=== PATIENT | female | born 1985 | race Caucasian/White ===

== ENCOUNTER 2021-12-14 05:32 | Inpatient (IN) | payer BC ==
[2021-12-14] MEDS ORDERED: METHYLERGONOVINE 0.2 MG/ML 1 ML AMP IM PRN (05:53)
[2021-12-14] MEDS ORDERED: CARBOPROST TROMETHAMINE 250 MCG/ML 1 ML AMP IM PRN (05:53)
[2021-12-14] MEDS ORDERED: OXYTOCIN 30 UNITS/500 ML NS 30 UNIT in SALINE 1 500ML.BAG IV SCH ×2 (05:53→15:09)
[2021-12-14] MEDS ORDERED: LIDOCAINE 0.5% (PF) 5 MG/ML (50 ML SDV) SQ PRN (05:53)
[2021-12-14] MEDS ORDERED: OXYTOCIN 10 UNIT/ML 1 ML VIAL IM PRN (05:53)
[2021-12-14] MEDS ORDERED: TERBUTALINE 1 MG/ML VIAL SQ PRN (05:53)
--- NOTE | 2021-12-14 06:16 | P.HPOB ---
History of Present Illness H&P Date: 12/14/21 Chief Complaint: Requested induction of labor This patient is a pleasant 36-year-old 6 para 3 female estimated date of confinement 12/17/2021 station age 39-4/7 weeks who presents to labor and delivery for requested induction of labor. Patient's care is such that she transferred care to ct at 31 weeks because her physicians delivering hospital was closed. care has been uncomplicated. She did have a previous with her second however has had a successful and requests again this . Patient is advanced for maternal age however has declined genetic testing. She has been followed with growth ultrasounds and nonstress testing. Review of Systems Genitourinary: Reports Menstruation: Reports amenorrhea Past Medical History Past Medical History: No Reported History Additional Past Medical History / Comment(s): Patient had a term vaginal delivery followed by a for oligohydramnios and nonreassuring monitoring, followed by successful . Patient also had an ectopic . Past Surgical History: Appendectomy Additional Past Surgical History / Comment(s): Dilation and curettage Past Psychological History: No Psychological Hx Reported Smoking Status: Never smoker Past Alcohol Use History: None Reported Past Drug Use History: None Reported Medications and Allergies Home Medications Medication Instructions Recorded Confirmed Type Pnv No.95/Ferrous Fum/Folic AC 1 tab PO DAILY 12/14/21 12/14/21 History [ Multivitamin Tablet] Allergies Allergy/AdvReac Type Severity Reaction Status Date / Time No Known Allergies Allergy Verified 12/14/21 05:52 Exam Intake and Output 12/13/21 12/13/21 12/14/21 14:59 22:59 06:59 Other: Weight 67.132 kg - OBG Physical Exam Abdomen: bowel sounds normal, no diffuse tenderness, no bruit present, no guarding noted, no hepatomegaly, no splenomegaly, no mass Vulva: both: normal Vagina: normal moisture, no discharge Cervix: no lesion (Cervix is 2-3 thick and -2 station), no discharge Uterus: normal size (Fundal height 38 cm) Results blood work shows she is O positive, rubella immune, RPR nonreactive, hepatitis B negative, HIV is nonreactive, growth ultrasound at 35 weeks was normal at 5 lbs. 12 oz. Assessment and Plan Assessment: This is a pleasant 36-year-old 7 para 3 female estimated gestational age 39-4/7 weeks who presents to labor and delivery for requested induction of labor. Patient's had a previous section with previous successful and is requesting repeat . Plan is Pitocin induction of labor per protocol. And anticipate vaginal delivery after section. Patient and I have discussed the risks and benefits of . (1) 39 weeks gestation of Current Visit: Yes Status: Acute Code(s): Z3A.39 - 39 WEEKS GESTATION OF SNOMED Code(s): 19445904 (2) Previous delivery affecting Current Visit: Yes Status: Acute Code(s): O34.219 - MATERNAL CARE FOR UNSP TYPE SCAR FROM PREVIOUS DEL SNOMED Code(s): 107114834 (3) Elderly multigravida Current Visit: Yes Status: Acute Code(s): O09.529 - SUPERVISION OF ELDERLY MULTIGRAVIDA, UNSPECIFIED TRIMESTER SNOMED Code(s): 563157113 (4) Elective induction of labor planned Current Visit: Yes Status: Acute Code(s): MIW6756 - SNOMED Code(s): 591323338
[2021-12-14] MEDS: LACTATED RINGERS 1,000 ML IV SCH ×3 (06:51→13:12)
[2021-12-14 07:08] LABS: Basophils % (A) 0 %; Eosinophils # (A) 0.1 k/uL (0-0.7); Eosinophils % (A) 1 %; HCT 37.3 % (34.0-46.0); HGB 11.7 gm/dL (11.4-16.0); Lymphocytes # (A) 1.3 k/uL (1.0-4.8); Lymphocytes % (A) 20 %; MCH 27.7 pg (25.0-35.0); MCHC 31.3 g/dL (31.0-37.0); MCV 88.6 fL (80.0-100.0); Mean Platelet Volume 8.4; Monocytes # (A) 0.5 k/uL (0-1.0); Monocytes % (A) 7 %; Neutrophils # (A) 4.3 k/uL (1.3-7.7); Neutrophils % (A) 68 %; Platelet Count 181 k/uL (150-450); RBC 4.21 m/uL (3.80-5.40); RDW 14.7 % (11.5-15.5); WBC 6.3 k/uL (3.8-10.6)
[2021-12-14] MEDS ORDERED: fentaNYL (PF) 50 MCG/ML 5 ML AMP ONE (11:48)
[2021-12-14] MEDS ORDERED: SODIUM CHLORIDE 0.9% 100 ML BAG ONE (11:48)
[2021-12-14] MEDS ORDERED: ROPIVACAINE 5MG/ML 20ML VIAL ONE (11:48)
[2021-12-14] MEDS ORDERED: ACETAMINOPHEN TAB 325 MG TAB PO PRN (15:09)
[2021-12-14] MEDS ORDERED: LANOLIN CREAM 5 GM TUBE TOPICAL PRN (15:09)
[2021-12-14] MEDS ORDERED: HYDROCORTISONE 2.5% RECTAL CREAM 30 GM TUBE RECTAL PRN (15:09)
[2021-12-14] MEDS ORDERED: diphenhydrAMINE 25 MG CAP PO PRN (15:09)
[2021-12-14] MEDS ORDERED: ZOLPIDEM 5 MG TAB PO PRN (15:09)
[2021-12-14] MEDS ORDERED: SIMETHICONE 80 MG CHEWABLE PO PRN (15:09)
[2021-12-14] MEDS ORDERED: diphenhydrAMINE 50 MG/ML 1 ML VIAL IVP PRN (15:09)
[2021-12-14] MEDS ORDERED: bisacodyL 10 MG SUPP RECTAL PRN (15:09)
[2021-12-14] MEDS ORDERED: BENZOCAINE/MENTHOL SPRAY 1 GM/SPRAY AEROSOL TOPICAL PRN (15:09)
[2021-12-14] MEDS: SENNOSIDES-DOCUSATE SODIUM 1 EACH TAB PO SCH ×2 (15:50→22:29)
--- NOTE | 2021-12-14 17:37 | P.PROBDLV ---
Vaginal Delivery Note - . Vaginal Delivery Note: Normal vaginal delivery () of viable male infant Apgars 9 and 9 delivery time is 1500 hrs. Please see dictated H&P for intimate details of this patient's admission. Brief summary this is a pleasant 36-year-old 6 para 3 female estimated gestational age 39-4/7 weeks who is admitted to labor and delivery for requested induction of labor. On admission patient is 3 cm dilated has artificial rupture membranes for clear fluid. Labor is induced with Pitocin per protocol. Patient's labor progresses and she does get an epidural for pain control. Patient therefore after quickly progresses to complete pushes the head to the perineum. Posterior perineum is supported we have controlled delivery of the 's head over the intact perineum. Infant's head is straight occiput anterior presentation. Mouth and nares are bulb suctioned. There is a nuchal cord and also a hand presenting posteriorly but with gentle downward traction we have delivery of the anterior shoulder and posterior shoulder and rest this infant's body. This is a vigorous viable male Apgars are 9 and 9 delivery time is 1500 hrs. After delivery of the infant the umbilical cord is allowed to quit pulsing is then doubly clamped and cut. The placenta is then spontaneously delivered intact. is laid on the mother's abdomen. Inspection of the perineum shows a superficial laceration which is reapproximated in [id number] 3-0 suture. Excellent reapproximation is noted. Cord blood was obtained. All counts are correct 3. There are no complications. and mother are stable delivery room.
[2021-12-15] MEDS: IBUPROFEN 600 MG TAB PO PRN ×3 (00:04→15:46)
--- NOTE | 2021-12-15 06:20 | P.PNOBGVD ---
Subjective - Subjective Patient reports: Reports appetite normal, Reports voiding normally, Reports pain well controlled, Reports ambulating normally : doing well Objective - Latest Vital Signs Latest vital signs: Vital Signs Temp Pulse Resp BP Pulse Ox 12/15/21 04:00 98.7 F 130 H 50 H 12/15/21 00:00 97.7 F 90 16 105/72 12/14/21 20:00 97.6 F 82 16 109/59 12/14/21 17:15 97.7 F 107 H 18 113/56 97 12/14/21 16:45 98.5 F 77 18 115/61 12/14/21 16:15 97.9 F 93 18 117/74 12/14/21 16:00 83 114/64 12/14/21 15:45 98.5 F 75 18 114/57 12/14/21 15:30 97.9 F 96 18 119/66 12/14/21 15:15 98.7 F 90 18 129/68 Intake and Output 12/14/21 12/14/21 12/15/21 14:59 22:59 06:59 Intake Total 178.400 Balance 178.400 Intake: Intake, IV Titration 178.400 Amount Oxytocin 30 Units/500 ml 178.400 Ns 30 unit In Saline 1 500ml.bag @ Per Protocol IV .Q0M [facility] Rx#:[id number] Other: # Voids 2 - Exam Lungs: bilateral: normal Chest: Normal S1, Normal S2 Extremities: Present: normal Abdomen: Present: normal appearance, soft Uterus: Present: normal, firm Assessment and Plan Assessment: day #1. Patient is resting without complaints and wishes to go home. Vital signs are stable she's afebrile. Uterus is firm nontender she is having normal lochia. My impression this is a normal course. Plan is to continue routine care discharge home later today. (1) 39 weeks gestation of Current Visit: Yes Status: Acute Code(s): Z3A.39 - 39 WEEKS GESTATION OF SNOMED Code(s): 51945282 (2) Previous delivery affecting Current Visit: Yes Status: Acute Code(s): O34.219 - MATERNAL CARE FOR UNSP TYPE SCAR FROM PREVIOUS DEL SNOMED Code(s): 363554983 (3) Elderly multigravida Current Visit: Yes Status: Acute Code(s): O09.529 - SUPERVISION OF ELDERLY MULTIGRAVIDA, UNSPECIFIED TRIMESTER SNOMED Code(s): 260964868 (4) Elective induction of labor planned Current Visit: Yes Status: Acute Code(s): HOU9352 - SNOMED Code(s): 213579778
[2021-12-15 06:24] LABS: Basophils % (A) 0 %; Eosinophils # (A) 0.1 k/uL (0-0.7); Eosinophils % (A) 2 %; HCT 33.4 % (34.0-46.0); HGB 10.6 gm/dL (11.4-16.0); Lymphocytes # (A) 1.8 k/uL (1.0-4.8); Lymphocytes % (A) 20 %; MCH 28.1 pg (25.0-35.0); MCHC 31.7 g/dL (31.0-37.0); MCV 88.7 fL (80.0-100.0); Mean Platelet Volume 8.3; Monocytes # (A) 0.7 k/uL (0-1.0); Monocytes % (A) 8 %; Neutrophils % (A) 68 %; Platelet Count 166 k/uL (150-450); RBC 3.76 m/uL (3.80-5.40); RDW 14.7 % (11.5-15.5); WBC 8.8 k/uL (3.8-10.6)
--- NOTE | 2021-12-15 06:29 | P.DS ---
Providers Date of admission: 12/14/21 05:32 Expected date of discharge: 12/15/21 Attending physician: Juan Choudhury Primary care physician: Stated None - Discharge Diagnosis(es) (1) 39 weeks gestation of Current Visit: Yes Status: Acute (2) Previous delivery affecting Current Visit: Yes Status: Acute (3) Elderly multigravida Current Visit: Yes Status: Acute (4) Elective induction of labor planned Current Visit: Yes Status: Acute Hospital Course: Please see dictated H&P for intimate details of this patient's admission. Brief summary this is a pleasant 36-year-old 7 para 3 female 39-4/7 weeks admitted to labor and delivery for induction of labor. Patient previous section and desired . Patient is admitted has uncomplicated induction of labor goes on to have a vaginal after section of viable male . Please see dictated delivery note. day 1 patient is doing well wishes to go home. Patient's felt be stable for discharge home follow up with me in 6 weeks. Procedures: Induction of labor and normal vaginal delivery () Patient Condition at Discharge: Good Plan - Discharge Summary Discharge Rx Participant: No New Discharge Prescriptions: New Ibuprofen [Motrin] 600 mg PO Q6HR PRN #30 tab PRN Reason: Mild Pain (Scale 1 To 3) No Action Pnv No.95/Ferrous Fum/Folic AC [ Multivitamin Tablet] 1 tab PO DAILY Discharge Medication List Pnv No.95/Ferrous Fum/Folic AC [ Multivitamin Tablet] 1 tab PO DAILY 12/14/21 [History] Ibuprofen [Motrin] 600 mg PO Q6HR PRN #30 tab 12/15/21 [Rx] Follow up Appointment(s)/Referral(s): Juan Choudhury MD [STAFF PHYSICIAN] - 01/25/22 3:00 pm Patient Instructions/Handouts: Vaginal Delivery (DC) Activity/Diet/Wound Care/Special Instructions: No intercourse or anything per vagina for 6 weeks. Please call if any fever, chills, excessive vaginal bleeding, and/or abdominal pain Discharge Disposition: HOME SELF-CARE
[2021-12-15] MEDS: SENNOSIDES-DOCUSATE SODIUM 1 EACH TAB PO SCH (08:26)
[2021-12-15 09:26] VITALS: BP 106/71; PULSE 84; RESP 18; TEMP 98
== END 2021-12-15 15:45 | disposition home or self-care (01) | DRG 807 ==
LOC: 4FBP 05:32
PROVIDERS: ADMIT Obstetrics & Gynecology; ATTEND Obstetrics & Gynecology
PROC: 10E0XZZ Delivery of Products of Conception, External Approach (ICD-10-PCS; principal; 2021-12-14)
PROC: 4A0HXCZ Measurement of Products of Conception, Cardiac Rate, External Approach (ICD-10-PCS; 2021-12-14)
PROC: 3E033VJ Introduction of Other Hormone into Peripheral Vein, Percutaneous Approach (ICD-10-PCS; 2021-12-14)
PROC: 10907ZC Drainage of Amniotic Fluid, Therapeutic from Products of Conception, Via Natural or Artificial Opening (ICD-10-PCS; 2021-12-14)
PROC: 0HQ9XZZ Repair Perineum Skin, External Approach (ICD-10-PCS; 2021-12-14)
DX: O34.211 Maternal care for low transverse scar from previous cesarean delivery (principal); Z37.0 Single live birth; O32.2XX0 Maternal care for transverse and oblique lie, not applicable or unspecified; O69.81X0 Labor and delivery complicated by cord around neck, without compression, not applicable or unspecified; O70.0 First degree perineal laceration during delivery; Z3A.39 39 weeks gestation of pregnancy
CPT/HCPCS: 85025; 86850; 86900; 86901; 88307